=== PATIENT | male | born 1975 | race Caucasian/White ===

== ENCOUNTER 2018-08-31 09:38 | Day surgery (SDC) | payer MEDICAID, OTHER ==
[~2018-08-31 09:38] MED LIST: Bupivacaine 0.5% 50 ML MDV ONE; Lidocaine 1% with EPINEPHrine 1:100,000 50 ML MDV ONE
[2018-08-31] MEDS ORDERED: ceFAZolin 2 GM in Premix Bag 1 BAG IV ONE (10:30)
[2018-08-31] MEDS ORDERED: Ondansetron 4 MG/2 ML SDV ONE (10:38)
[2018-08-31] MEDS ORDERED: Dexamethasone 4 MG/ML SDV ONE (10:38)
[2018-08-31] MEDS ORDERED: Succinylcholine 200 MG/10 ML MDV ONE (10:38)
[2018-08-31] MEDS ORDERED: Propofol 200 MG/20 ML SDV ONE ×2 (10:38→10:39)
[2018-08-31] MEDS ORDERED: fentaNYL 250 MCG/5 ML SDV ONE (10:38)
[2018-08-31] MEDS ORDERED: Rocuronium 50 MG/5 ML Vial ONE (10:38)
[2018-08-31] MEDS ORDERED: Neostigmine Methylsulfate 1 MG/ML 5 ML Syringe ONE (10:38)
[2018-08-31] MEDS ORDERED: Glycopyrrolate 0.2 MG/ML 5 ML MDV ONE (10:38)
[2018-08-31] MEDS ORDERED: metroNIDAZOLE/Normal Saline 500 MG in Premix Bag 1 BAG IV ONE (10:45)
[2018-08-31] MEDS: Sodium Chloride 0.9% 1,000 ML IV SCH ×2 (10:46→15:09)
[2018-08-31] MEDS ORDERED: Ropivacaine 57 ML, Dexamethasone 8 MG, EPINEPHrine 0.4 MG, Sodium Chloride 0.9% 20.6 ML NERVRT SCH ×4 (11:15)
[2018-08-31] MEDS ORDERED: Zolpidem 5 MG Tab PO PRN (11:41)
[2018-08-31] MEDS ORDERED: Docusate Sodium 100 MG Cap PO PRN (11:41)
[2018-08-31] MEDS ORDERED: Benzocaine/Cetylpyridinium/Menthol Lozenge MUCMEM PRN (11:41)
[2018-08-31] MEDS ORDERED: Acetaminophen/HYDROcodone 325-5 MG Tab PO PRN (11:41)
[2018-08-31] MEDS ORDERED: hydrOXYzine HCl 100 MG/2 ML SDV IM PRN (11:41)
[2018-08-31] MEDS ORDERED: Ketorolac 60 MG/2 ML SDV ONE (11:47)
--- NOTE | 2018-09-01 08:27 | OR ---
DATE OF PROCEDURE: 08/31/2018 SURGEON: Ludin Franks MD PROCEDURE: Laparoscopic ventral hernia repair, 5 cm, with mesh. ANESTHESIA: General/local. RISKS: Risks, benefits, alternatives, and limitations including, but not limited to infection, bleeding and injury to abdominal structures were explained to the patient. They understands these risks and wished to proceed. PREOPERATIVE DIAGNOSIS: Ventral hernia. POSTOPERATIVE DIAGNOSIS: Ventral hernia. PROCEDURE IN DETAIL: The patient was placed in supine position. In the right abdomen, a Veress needle was used to enter the abdomen. A drop test was performed without abnormality through an approximately 12 mm incision. This was then insufflated. An Optiview trocar was then introduced under direct visualization. Hernia was readily identified and no evidence of incarceration or strangulation was noted. This measured to be approximately 3.5 cm. A 12-cm circular piece of mesh was then introduced. An additional 5 mm port in the superior abdomen was also placed, and this was tacked into place without difficulty. The air was removed prior to this. The abdomen was inspected for enterotomy or injury and none was noted. The wounds were closed with 3-0 Vicryl and 4-0 Vicryl in interrupted running fashion. Dermabond was applied. The patient tolerated the procedure well. Ludin Franks MD /[id number]
--- NOTE | 2018-09-01 08:30 | OR ---
DATE OF PROCEDURE: 08/31/2018 SURGEON: Ludin Franks MD PROCEDURE: Bilateral transversus abdominis plane blocks. COMPLICATIONS: None. 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 PREOPERATIVE DIAGNOSIS: Pain management. POSTOPERATIVE DIAGNOSIS: Pain management. RISKS: Risks, benefits, alternatives, and limitations including, but not limited to infection, bleeding, and injury to abdominal structures were explained to the patient. PROCEDURE IN DETAIL: The patient was placed, prepped and draped in supine position. The left transversus abdominis plane was readily identified, and 80% of the solution was injected under direct visualization. The right side was then performed in the same manner, same fashion, same technique, same sequence, and using the same equipment. This was also injected with 80%. The patient tolerated the procedure well. Ludin Franks MD /[id number]
== END 2018-08-31 17:35 | disposition home or self-care (01) ==
LOC: JP.SDS 09:38 → JP.MS 12:30 → JP.SDS 17:35
PROVIDERS: ATTEND Surgery
DX: K43.9 Ventral hernia without obstruction or gangrene (principal); G89.18 Other acute postprocedural pain; E66.01 Morbid (severe) obesity due to excess calories; Z68.43 Body mass index [BMI] 50.0-59.9, adult
CPT/HCPCS: 49652; 64488; A9270; C1781; J0171; J0330; J0690; J1100; J1885; J2405; J2704; J2710; J2795; J3010; J3410; J3490; J7030; J7050

== ENCOUNTER 2021-03-19 14:29 | Emergency (ER) | payer MEDICAID ==
--- NOTE | 2021-03-19 16:31 | EDM.PDOC ---
ED HPI GENERAL MEDICAL PROBLEM - General Chief Complaint: Respiratory Problem Stated Complaint: TROUBLE BREATHING,DIZZY,FEVER Time Seen by Provider: 03/19/21 16:28 Source of Information: Reports: Patient, Family, RN Notes Reviewed History Limitations: Reports: No Limitations - History of Present Illness INITIAL COMMENTS - FREE TEXT/NARRATIVE: 45-year-old gentleman presents emergency department day complaint of shortness of breath, he has been ill for about 6 days did a home test today was positive for COVID-19. He is vaccinated with Maderna 2 doses unfortunately he is a [facility] case. Leg Pain Score (Numeric/FACES): 6 - Related Data Allergies Allergy/AdvReac Type Severity Reaction Status Date / Time No Known Allergies Allergy Verified 03/19/21 15:52 Home Meds: Home Meds Cholecalciferol (Vitamin D3) [Vitamin D3] 5,000 unit PO DAILY 08/29/18 [History] Cholecalciferol (Vitamin D3) [Vitamin D] 50,000 unit PO ASDIRECTED 08/29/18 [History] Past Medical History - Infectious Disease History Infectious Disease History: Reports: Novel Coronavirus - Past Surgical History GI Surgical History: Reports: Other (See Below) Other GI Surgeries/Procedures: umbilica hernia Social & Family History - Family History Family Medical History: No Pertinent Family History - Tobacco Use Tobacco Use Status *Q: Never Tobacco User - Caffeine Use Caffeine Use: Reports: Soda - Recreational Drug Use Recreational Drug Use: No ED ROS GENERAL - Review of Systems Review Of Systems: See Below Constitutional: Reports: Fever, Weakness, Fatigue Respiratory: Reports: Shortness of Breath Cardiovascular: Reports: Dyspnea on Exertion GI/Abdominal: Reports: No Symptoms ED EXAM, GENERAL - Physical Exam Exam: See Below Exam Limited By: No Limitations General Appearance: Alert, WD/WN, No Apparent Distress Respiratory/Chest: No Respiratory Distress, Lungs Clear, Normal Breath Sounds, No Accessory Muscle Use, Chest Non-Tender Cardiovascular: Regular Rate, Rhythm, No Murmur GI/Abdominal: Soft, Non-Tender Course - Vital Signs Last Recorded V/S: Last Vital Signs Temp 99.5 F 03/19/21 15:44 Pulse 90 03/19/21 15:44 Resp 20 03/19/21 15:44 BP 118/62 03/19/21 15:44 Pulse Ox 91 L 03/19/21 15:44 Departure - Departure Time of Disposition: 16:30 Disposition: Home, Self-Care 01 Condition: Fair Clinical Impression: COVID-19 - Discharge Information Instructions: 10 Things You Can Do to Manage Your COVID-19 Symptoms at Home - [facility] (11/21/2020) Referrals: PCP,None [Primary Care Provider] - Additional Instructions: The outpatient surgery center will contact you for your appointment time for monoclonal antibody treatment Sepsis Event Note (ED) - Focused Exam Vital Signs: Vital Signs Temp Pulse Resp BP Pulse Ox 03/19/21 15:44 99.5 F 90 20 118/62 91 L - Assessment/Plan Plan: Assessment Acuity = acute Site and laterality = viral syndrome Etiology = COVID-19 Manifestations = none Location of injury = Home Lab values = none Plan He is 6 days out from symptom onset he is a candidate for monoclonal antibody therapy plan is to do this tomorrow morning This note was dictated using [employer] voice recognition software please call with any questions on syntax or grammar.
== END 2021-03-19 16:57 | disposition home or self-care (01) ==
LOC: JP.ED 14:29
DX: U07.1 COVID-19 (principal)
CPT/HCPCS: 99284

== ENCOUNTER 2022-05-25 08:44 | Day surgery (SDC) | payer MEDICAID ==
[2022-05-25] MEDS ORDERED: Sodium Chloride 0.9% 1,000 ML IV SCH ×2 (09:00→09:45)
[2022-05-25] MEDS ORDERED: Propofol 200 MG/20 ML SDV ONE ×2 (09:03→10:11)
[2022-05-25] MEDS ORDERED: Midazolam 1 MG/ML 2 ML SDV ONE (09:03)
[2022-05-25] MEDS ORDERED: fentaNYL 50 MCG/ML SDV ONE (09:03)
[2022-05-25] MEDS ORDERED: Lactated Ringers 1,000 ML IV SCH (09:30)
== END 2022-05-25 11:21 | disposition home or self-care (01) ==
LOC: JP.SDS 08:44
PROVIDERS: ATTEND Family Medicine
DX: Z12.11 Encounter for screening for malignant neoplasm of colon (principal); G47.33 Obstructive sleep apnea (adult) (pediatric); E66.9 Obesity, unspecified; E11.9 Type 2 diabetes mellitus without complications; R09.02 Hypoxemia; Z68.43 Body mass index [BMI] 50.0-59.9, adult; Z98.890 Other specified postprocedural states; Z79.899 Other long term (current) drug therapy
CPT/HCPCS: 45380; 88305; J2250; J2704; J3010; J7030

== ENCOUNTER 2024-10-28 16:16 | Emergency (ER) | payer MEDICAID | END 2024-10-28 17:27 | disposition home or self-care (01) | LOC: JP.ED 16:16 | DX: L03.116 Cellulitis of left lower limb (principal); E11.9 Type 2 diabetes mellitus without complications; Z86.16 Personal history of COVID-19; Z79.84 Long term (current) use of oral hypoglycemic drugs; Z79.899 Other long term (current) drug therapy | CPT/HCPCS: 99283 ==